=== PATIENT | female | born 2000 | race Caucasian/White ===

== ENCOUNTER 2022-02-01 17:21 | Emergency (ER) | payer OTHER, SELFPAY ==
[2022-02-01 17:36] VITALS: BP 120/90; PULSE 90; RESP 15; O2SAT 100; BMI 23.3
[2022-02-01 17:59] LABS: Add Manual Diff / Slide Review NO; Basophils Absolute Auto 100 /uL (0-100); Basophils Percent Auto 0.4 % (0-2); Eosinophils Absolute Auto 200 /uL (0-450); Hematocrit 38.4 % (36-46); Hemoglobin 12.8 g/dL (12.0-16.0); Lymphocytes Absolute Auto 2500 /uL (1100-4500); Lymphocytes Percent Auto 17.1 % (25-40); Mean Corpuscular HGB Conc 33.3 % (30-36); Mean Corpuscular Hemoglobin 30.5 PG (26-34); Mean Corpuscular Volume 91.4 fL (80-100); Monocytes Absolute Auto 1000 /uL (0-900); Monocytes Percent Auto 6.8 % (3-14); Neutrophils Absolute Auto 10900 /uL (1500-7000); Neutrophils Percent Auto 74.7 % (50-75); Platelet Count 296 X10^3/uL (150-400); Red Cell Distribution Width 13.1 % (11.6-14.8); White Blood Cell Count 14.6 X10^3/uL (4.5-11.0)
[2022-02-01 18:02] LABS: INR 1.1 (0.9-1.3); Prothrombin Time 13.1 SECONDS (10.1-12.7)
[2022-02-01 18:05] LABS: PTT Partial Thromboplastin Tim 37 SECONDS (26-36)
[2022-02-01 18:09] LABS: Alanine Aminotransferase 17 IU/L (<35); Albumin 4.4 g/dL (3.5-5.0); Albumin Globulin Ratio 1.3 (1.0-2.8); Alkaline Phosphatase 70 U/L (38-126); Aspartate Aminotransferase 19 IU/L (14-36); BUN Creatinine Ratio 12.3 (6-22); Bilirubin Total 0.7 mg/dL (0.2-1.3); Blood Urea Nitrogen 7 mg/dL (7-17); Calcium 8.9 mg/dL (8.4-10.2); Carbon Dioxide 22 mmol/L (22-32); Chloride 105 mmol/L (98-107); Estimated Glomerular Filt Rate > 60 mL/min (>60); Globulin 3.5 g/dL (1.7-4.1); Glucose 92 mg/dL (70-100); HEMOLYSIS < 15 (0-50); Potassium 3.7 mmol/L (3.4-5.1); Sodium 139 mmol/L (137-145); Total Protein 7.9 g/dL (6.3-8.2)
--- NOTE | 2022-02-02 00:01 | ED_ITS ---
HPI - Abdominal Pain General Chief Complaint: Abdominal Pain Stated Complaint: abd pain Time Seen by Provider: 02/01/22 23:51 Source: patient Mode of arrival: Ambulatory History of Present Illness HPI narrative: Patient here with carie. Complains of generalized abdominal pain and discomfort with diarrhea for the past 3 weeks. Since . She had an episode dark stools recently. No dizziness no syncope no nausea vomiting no hematemesis. Patient denies any sick contacts. Patient did recently have left hip labrum repair surgery. She was on ibuprofen 3 times a day. She is unsure if it was 600 mg or 800 mg tablets that she was prescribed. She was taking these every day, 3 times a day. She would alternate with Tylenol at times. No dizziness no syncope. No dyspnea. Patient and carie here visiting family from out of town Related Data Allergies Allergy/AdvReac Type Severity Reaction Status Date / Time amoxicillin Allergy Verified 02/01/22 17:36 bacitracin Allergy Verified 02/01/22 17:36 [From Triple Antibiotic] latex Allergy Verified 02/01/22 17:36 neomycin Allergy Verified 02/01/22 17:36 [From Triple Antibiotic] polymyxin B Allergy Verified 02/01/22 17:36 [From Triple Antibiotic] Review of Systems Review of Systems Narrative: GENERAL: negative chills, fatigue, malaise, fever, sweats. HEENT: negative sinus pain, ear pain, sore throat RESPIRATORY: negative dyspnea, cough CARDIOVASCULAR: negative chest pain, palpitations GASTROINTESTINAL: negative nausea, vomiting, positive black stools and diarrhea and abdominal pain : negative dysuria, frequency, hematuria MUSCULOSKELETAL: negative muscle or bony pain SKIN: negative rash, skin lesions NEUROLOGIC: negative weakness, numbness ROS Unobtainable: All systems reviewed & are unremarkable except as noted in HPI and below Patient History Social History Smoking Status: Unknown if ever smoked Smoking Status: Unknown if ever smoked alcohol intake frequency: holidays/special occasions only Substance Use Type: does not use Exam Narrative Exam Narrative: GENERAL: in no distress, not toxic not dyspneic HEAD: Normocephalic. EYES: Pupils equal round No scleral icterus. [place] conjunctiva ENT: Mucous membranes moist. NECK: Trachea midline. CARDIOVASCULAR: Regular rate and rhythm without murmurs RESPIRATORY: Clear to auscultation. Breath sounds equal bilaterally. No wheezes, rales, or rhonchi. GASTROINTESTINAL: Abdomen soft, non-tender, abdomen soft flat nontender no peritoneal signs bowel sounds are present. No CVA tenderness EXTREMITIES: No gross deformities. BACK: No flank tenderness. NEURO: AOx4. SKIN: Warm and dry PSYCH: Not anxious, is cooperative Initial Vital Signs Initial Vital Signs: Vital Signs Pulse Rate 90 02/01/22 17:36 Respiratory Rate 15 02/01/22 17:36 Blood Pressure 120/90 02/01/22 17:36 Pulse Oximetry 100 02/01/22 17:36 Oxygen Delivery Method 02/01/22 17:36 Course Course Course Narrative: No new issues during course of stay Orders Ordered: ED Orders 02/02/22 00:26 CT abdomen pelvis w con Stat Discontinued Medications Sodium Chloride (Normal Saline 0.9%) 1,000 mls @ 1,000 mls/hr IV BOLUS ONE Stop: 02/02/22 01:00 Last Infusion: 02/02/22 02:52 Dose: 0 mls/hr Documented By: JOSÉ MIGUEL Admin: 02/02/22 01:20 Dose: 1,000 mls/hr Documented By: KENNY Vital Signs Vital signs: Vital Signs - 8 hr 02/02/22 00:16 02/02/22 01:10 02/02/22 02:51 Pulse Rate 85 77 80 Respiratory Rate 18 18 Blood Pressure 124/78 134/78 126/75 Pulse Oximetry 100 99 98 Oxygen Delivery Method Room Air Room Air Room Air MDM - Abdominal Pain Differential Diagnosis Differential diagnosis: Likely abdominal pain, acute appendicitis, constipation, gastroenteritis and other (Gastritis/ibuprofen induce gastritis/GI bleed) Lab Data Result diagrams: 02/01/22 17:43 02/01/22 17:43 Labs: Lab Results 02/01/22 02/01/22 02/01/22 Range/Units 17:43 17:43 17:43 WBC 14.6 H (4.5-11.0) X10^3/uL RBC 4.20 (4.0-5.2) X10^6/uL Hgb 12.8 (12.0-16.0) g/dL Hct 38.4 (36-46) % MCV 91.4 (80-100) fL MCH 30.5 (26-34) PG MCHC 33.3 (30-36) % RDW 13.1 (11.6-14.8) % Plt Count 296 (150-400) X10^3/uL Neut % (Auto) 74.7 (50-75) % Lymph % (Auto) 17.1 L (25-40) % [place] % (Auto) 6.8 (3-14) % Eos % (Auto) 1.0 L (2-4) % Baso % (Auto) 0.4 (0-2) % Neut # (Auto) 17992 H (9470-0138) /uL Lymph # (Auto) 2500 (0528-6421) /uL [place] # (Auto) 1000 H (0-900) /uL Eos # (Auto) 200 (0-450) /uL Baso # (Auto) 100 (0-100) /uL PT 13.1 H (10.1-12.7) SECONDS INR 1.1 (0.9-1.3) APTT 37 H (26-36) SECONDS Sodium 139 (137-145) mmol/L Potassium 3.7 (3.4-5.1) mmol/L Chloride 105 (98-107) mmol/L Carbon Dioxide 22 (22-32) mmol/L BUN 7 (7-17) mg/dL Creatinine 0.57 (0.52-1.04) mg/dL Estimated GFR > 60 (>60) mL/min BUN/Creatinine Ratio 12.3 (6-22) Glucose 92 (70-100) mg/dL Calcium 8.9 (8.4-10.2) mg/dL Total Bilirubin 0.7 (0.2-1.3) mg/dL AST 19 (14-36) IU/L ALT 17 (<35) IU/L Alkaline Phosphatase 70 (38-126) U/L Total Protein 7.9 (6.3-8.2) g/dL Albumin 4.4 (3.5-5.0) g/dL Globulin 3.5 (1.7-4.1) g/dL Albumin/Globulin Ratio 1.3 (1.0-2.8) Point of care testing: Point of Care Testing Test Results Negative Stool Occult Blood Negative Urine Dip Bedside Urine Glucose Negative Bedside Urine Bilirubin - Negative Bedside Urine Ketone +/- 5 Urine Specific [place] 1.015 Bedside Urine Occult Blood - Negative Bedside Urine pH 6.0 Bedside Urine Protein - Negative Bedside Urine Urobilinogen - Negative Bedside Urine Nitrite - Negative Bedside Urine Leukocytes - Negative Esterase Imaging Data CT scan - abdomen/pelvis: Radiologist's Impression: [address] [address] [address] Scan Report Signed Patient: Arelis Byers MR#: [id number] : 2000 Acct:[id number] Age/Sex: 21 / F Date of Service: 02/02/22 Loc: ED Accession Number: [id number] ?? Procedure: CT abdomen pelvis w con Ordering Provider: Christopher Terrell MD PROCEDURE:? CT ABDOMEN PELVIS W CON ? INDICATIONS:? abdominal pain/GI bleed ? TECHNIQUE:? After the administration of oral and IV contrast, axial sections were acquired from the lung bases to the pubic symphysis.? Coronal and sagittal reformats were performed.? For radiation dose reduction, the following was used:? automated exposure control, adjustment of mA and/or kV according to patient size. ? COMPARISON:? None. ? FINDINGS:? Image quality:? Excellent.? ? Lung bases:? Unremarkable.? ? Heart:? Heart is normal in size. ? ? ABDOMEN: Liver:? No mass lesion.? There is mild focal fatty infiltration in the anterior left hepatic lobe. Gallbladder:? Within normal limits without calcified gallstones.? ? Biliary ducts:? No biliary ductal dilatation.? ? Pancreas:? Unremarkable.? ? Spleen:? Normal in size.? ? Adrenal Glands:? No adrenal nodules.? ? Kidneys and Ureters:? No hydronephrosis.? ? ? Stomach and Bowel:? Stomach and small bowel are normal in caliber and wall thickness.? No evidence of appendicitis.? There is mild segmental wall thickening of the descending colon with mild pericolonic fat stranding compatible with a mild colitis.? Peritoneum:? There is a small amount of free fluid in the pelvis which appears within physiologic limits.? No free air.? ? Ventral Wall: ? No hernia.? Abdominal Nodes:? No retroperitoneal or mesenteric adenopathy by size criteria.? Vessels:? Aorta and inferior vena cava are normal in size.? ? PELVIS: Pelvic Organs:? There is a small peripherally enhancing crenulated cyst in the right ovary measuring up to 2.1 cm likely representing a ruptured physiologic cyst.? ? Bladder:? Unremarkable.? ? Pelvic Nodes: No enlarged lymph nodes.? Miscellaneous: No inguinal hernias are seen. ? ? ? Bones:? Visualized osseous structures demonstrate no suspicious focal lesions. ? IMPRESSION:? ? 1. Mild colitis of the descending colon likely secondary to an infectious or inflammatory process. ? 2. Peripherally enhancing crenulated cyst in the right ovary compatible with a ruptured physiologic cyst.? ? ? Dictated by: Kiel Chavez M.D. on 02/02/2022 at 1:55 ? ? Approved by: Kiel Chavez M.D. on 02/02/2022 at 1:59 ? MDM Narrative Medical decision making narrative: Appropriate for discharge home. Exam and laboratory studies and imaging otherwise reassuring. Black stool patient had likely due to ibuprofen use. She is aware not to continue this and to inform future providers likely causing gastritis. Vital signs are stable. No antibiotics indicated this time likely viral, patient can use [id number] antidiarrheal medication as symptoms have been going since . Patient does not. Dehydrated or toxic. Return precautions reviewed with her. She desires discharge home. Discharge Plan Departure Patient Disposition: Home Clinical Impression: Colitis Instructions: DI for Colitis Activity Restrictions/Additional Instructions: See family doctor in a week for re-evaluation. Keep well hydrated. You can use short course of [id number] antidiarrhea medication for 2 days. Today's laboratory studies and CT scan are reassuring. Diarrhea likely due to viral infection, no antibiotics indicated. Please do not use ibuprofen as this may have irritated your stomach lining causing some bleeding. Be sure to inform future providers about this problem you have had. Return if worse if any ques tions or concerns. Visit Report Forms: Patient Portal/API
[2022-02-02 00:16] VITALS: BP 124/78; PULSE 85; RESP 18; O2SAT 100
--- NOTE | 2022-02-02 00:26 | DI.CT.S_ITS ---
PROCEDURE: CT ABDOMEN PELVIS W CON INDICATIONS: abdominal pain/GI bleed TECHNIQUE: After the administration of oral and IV contrast, axial sections were acquired from the lung bases to the pubic symphysis. Coronal and sagittal reformats were performed. For radiation dose reduction, the following was used: automated exposure control, adjustment of mA and/or kV according to patient size. COMPARISON: None. FINDINGS: Image quality: Excellent. Lung bases: Unremarkable. Heart: Heart is normal in size. ABDOMEN: Liver: No mass lesion. There is mild focal fatty infiltration in the anterior left hepatic lobe. Gallbladder: Within normal limits without calcified gallstones. Biliary ducts: No biliary ductal dilatation. Pancreas: Unremarkable. Spleen: Normal in size. Adrenal Glands: No adrenal nodules. Kidneys and Ureters: No hydronephrosis. Stomach and Bowel: Stomach and small bowel are normal in caliber and wall thickness. No evidence of appendicitis. There is mild segmental wall thickening of the descending colon with mild pericolonic fat stranding compatible with a mild colitis. Peritoneum: There is a small amount of free fluid in the pelvis which appears within physiologic limits. No free air. Ventral Wall: No hernia. Abdominal Nodes: No retroperitoneal or mesenteric adenopathy by size criteria. Vessels: Aorta and inferior vena cava are normal in size. PELVIS: Pelvic Organs: There is a small peripherally enhancing crenulated cyst in the right ovary measuring up to 2.1 cm likely representing a ruptured physiologic cyst. Bladder: Unremarkable. Pelvic Nodes: No enlarged lymph nodes. Miscellaneous: No inguinal hernias are seen. Bones: Visualized osseous structures demonstrate no suspicious focal lesions. IMPRESSION: 1. Mild colitis of the descending colon likely secondary to an infectious or inflammatory process. 2. Peripherally enhancing crenulated cyst in the right ovary compatible with a ruptured physiologic cyst. Dictated by: Kiel Chavez M.D. on 02/02/2022 at 1:55 Approved by: Kiel Chavez M.D. on 02/02/2022 at 1:59
[2022-02-02 01:10] VITALS: BP 134/78; PULSE 77; O2SAT 99
[2022-02-02] MEDS: SODIUM CHLORIDE 0.9% 1,000 ML 1000 ML IV (01:20)
[2022-02-02 02:51] VITALS: BP 126/75; PULSE 80; RESP 18; O2SAT 98
== END 2022-02-02 02:52 | disposition home or self-care (01) ==
PROVIDERS: Emergency Medicine; Emergency Provider Emergency Medicine
DX: K52.9 Noninfective gastroenteritis and colitis, unspecified (principal)
CPT/HCPCS: 36415; 74177; 80053; 81003; 81025; 82272; 85025; 85610; 85730; 99284; Q9967